=== PATIENT | female | born 1980 | race Caucasian/White ===

== ENCOUNTER → 2016-11-18 07:57 | Outpatient (CLI) | payer MEDICAID ==
[~2016-11-18 07:57] MED LIST: PRENATAL COMPLE1 TAB PO; ZANTAC150 MG
--- NOTE | 2016-11-18 09:39 | NUR ---
Nutrition education for TELLO: Pt eating breakfast this am in the dining room. Pt eating biscuit, gravy, hash browns, sausage, eggs, chocolate milk. Pt reports she eats large amounts of food at every meal. Pt ate a whole pizza and her glucose was over 200 mg/dl after. Pt is drinking some juice and soda, but says she drinks mostly water. Pt is eating a lot of fast food. Pt does like nonstarchy vegetables and tries to eat them every day. Reviewed CHO containing foods and the affect too many CHO have on glucose. Stressed the importance of eating meals at consistent times along with portion control to keep glucose under control. Reviewed portion sizes of common CHO foods. Reviewed sample menus with emphasis on CHO. Pt is not very happy with having to limit CHO intake and states that she is going to be hungry all the time. RDN does not feel pt is going to be compliant with information provided due to her not wanting to stop eating large amounts of food at meals. Reviewed correct glucose numbers for before and 1 hour after meals; compared correct numbers with pts glucose log. Pt is out of range almost every time after meals. Reviewed again to limit the amount of CHO to no more than 60 gms per meal and 30 gms per snack. RDN provided pt with printed diet information and RDN name and phone number. RDN will be available if needed. Thank you for the consult.
[2017-01-15 05:10] VITALS: BMI 33.3
== END | disposition home or self-care (01) ==
LOC: D.FANS 07:57
DX: O24.419 Gestational diabetes mellitus in pregnancy, unspecified control (principal)

== ENCOUNTER → 2016-12-09 10:35 | Outpatient (CLI) | payer MEDICAID ==
[2017-01-15 05:10] VITALS: BMI 33.3
== END | disposition home or self-care (01) ==
LOC: D.LDO 10:35
DX: O24.419 Gestational diabetes mellitus in pregnancy, unspecified control (principal)

== ENCOUNTER → 2016-12-12 09:29 | Outpatient (CLI) | payer MEDICAID ==
[2017-01-15 05:10] VITALS: BMI 33.3
== END | disposition home or self-care (01) ==
LOC: D.LDO 09:29
DX: O24.913 Unspecified diabetes mellitus in pregnancy, third trimester (principal); Z3A.34 34 weeks gestation of pregnancy

== ENCOUNTER → 2016-12-15 10:00 | Outpatient (CLI) | payer MEDICAID ==
[2017-01-15 05:10] VITALS: BMI 33.3
== END | disposition home or self-care (01) ==
LOC: D.LDO 10:00
DX: O24.913 Unspecified diabetes mellitus in pregnancy, third trimester (principal); Z3A.34 34 weeks gestation of pregnancy

== ENCOUNTER → 2016-12-17 11:05 | Outpatient (CLI) | payer MEDICAID ==
[2017-01-15 05:10] VITALS: BMI 33.3
== END | disposition home or self-care (01) ==
LOC: D.LDO 11:05
DX: O24.419 Gestational diabetes mellitus in pregnancy, unspecified control (principal); Z3A.35 35 weeks gestation of pregnancy

== ENCOUNTER → 2016-12-21 10:00 | Outpatient (CLI) | payer MEDICAID ==
[2017-01-15 05:10] VITALS: BMI 33.3
== END | disposition home or self-care (01) ==
LOC: D.LDO 10:00
DX: O24.419 Gestational diabetes mellitus in pregnancy, unspecified control (principal); Z3A.35 35 weeks gestation of pregnancy

== ENCOUNTER → 2016-12-24 10:49 | Outpatient (CLI) | payer MEDICAID ==
[2017-01-15 05:10] VITALS: BMI 33.3
== END | disposition home or self-care (01) ==
LOC: D.LDO 10:49
DX: O24.419 Gestational diabetes mellitus in pregnancy, unspecified control (principal); Z3A.36 36 weeks gestation of pregnancy

== ENCOUNTER → 2016-12-29 10:00 | Outpatient (CLI) | payer MEDICAID ==
[2017-01-15 05:10] VITALS: BMI 33.3
== END | disposition home or self-care (01) ==
LOC: D.LDO 10:00
DX: O24.419 Gestational diabetes mellitus in pregnancy, unspecified control (principal); Z3A.36 36 weeks gestation of pregnancy

== ENCOUNTER → 2017-01-01 08:55 | Outpatient (CLI) | payer MEDICAID ==
[2017-01-15 05:10] VITALS: BMI 33.3
== END | disposition home or self-care (01) ==
LOC: D.LDO 08:55
DX: O24.419 Gestational diabetes mellitus in pregnancy, unspecified control (principal); Z3A.37 37 weeks gestation of pregnancy

== ENCOUNTER → 2017-01-05 10:50 | Outpatient (CLI) | payer MEDICAID ==
[2017-01-15 05:10] VITALS: BMI 33.3
== END | disposition home or self-care (01) ==
LOC: D.LDO 10:50
DX: O24.419 Gestational diabetes mellitus in pregnancy, unspecified control (principal); Z3A.37 37 weeks gestation of pregnancy

== ENCOUNTER → 2017-01-06 17:59 | Outpatient (CLI) | payer MEDICAID | END | disposition home or self-care (01) | LOC: D.LDO 17:59 | DX: Z34.83 Encounter for supervision of other normal pregnancy, third trimester (principal); M54.9 Dorsalgia, unspecified; Z3A.37 37 weeks gestation of pregnancy ==

== ENCOUNTER → 2017-01-08 10:40 | Outpatient (CLI) | payer MEDICAID ==
[2017-01-15 05:10] VITALS: BMI 33.3
== END | disposition home or self-care (01) ==
LOC: D.LDO 10:40
DX: O24.419 Gestational diabetes mellitus in pregnancy, unspecified control (principal); Z3A.38 38 weeks gestation of pregnancy

== ENCOUNTER → 2017-01-12 09:40 | Outpatient (CLI) | payer MEDICAID | END | disposition home or self-care (01) | LOC: D.LDO 09:40 | DX: O24.419 Gestational diabetes mellitus in pregnancy, unspecified control (principal); Z3A.38 38 weeks gestation of pregnancy ==

== ENCOUNTER 2017-01-15 04:42 | Inpatient (IN) | payer MEDICAID ==
[~2017-01-15] VITALS: Ht 157.5 cm; Wt 82.7 kg
[2017-01-15 05:10] VITALS: BP 125/66; Ht 157.5 cm; Wt 82.7 kg
[2017-01-15 06:23] LABS: HEMATOCRIT 35.7 % (36.0-48.0); HEMOGLOBIN 11.6 g/dL (12-16); MCH 29.1 pg (26.0-34.0); MCHC 32.5 g/dL (31.0-37.0); MCV 89.5 fL (80.0-100.0); MEAN PLATELET VOLUME 10.6 fL (7.4-10.4); RBC 3.99 10x6/uL (4.00-5.40); RDW 14.9 % (11.5-14.5); WBC 14.8 10x3/uL (4.8-10.8)
[2017-01-15 07:00] LABS: APPEARANCE CLOUDY (CLEAR); BILIRUBIN NEGATIVE (NEGATIVE); COLOR YELLOW (YELLOW); GLUCOSE NEGATIVE (NEGATIVE); KETONE NEGATIVE (NEGATIVE); LEUKOCYTE ESTERASE 1+ (NEGATIVE); NITRITE NEGATIVE (NEGATIVE); PROTEIN 1+ mg/dL (NEGATIVE); UROBILINOGEN NORMAL (NORMAL)
[2017-01-15 07:02] LABS: BACTERIA MANY /hpf (NONE SEEN); MUCUS <1+ /lpf (NONE SEEN); RED CELLS - URINE OCC /hpf (0-5)
--- NOTE | 2017-01-15 16:00 | NUR ---
PATIENT UP TO SHOWER. INSTRUCTED ON USE OF EPI FOAM, TUCKS, AND DERMAPLAST. VERBALIZES UNDERSTANDING.
[2017-01-15 16:15] VITALS: BP 129/73
--- NOTE | 2017-01-15 18:06 | NUR ---
entered room. pt ate 90% of diet. states is having some cramping and requesting pain medication.
[2017-01-15 19:20] VITALS: BP 122/68
--- NOTE | 2017-01-15 19:20 | NUR ---
RCVD PT FROM AM SHIFT. PT SITTING UP IN BED WITH UP IN ARMS. PT RATES CURRENTLY PAIN 3/10 IN ABD AND DESCRIBED THIS CRAMPING. FOB REMAINS AT BEDSIDE. ASSESSMENT COMPLETE AT THIS TIME. VSS. HR-RRR, PPP. BREATH SOUNDS CLEAR AND UNLABORED X2. BOWEL SOUNDS ACTIVE X4. FUNDUS FIRM, U/2, ML. SMALL LOCHIA RUBRA NOTED ON PERIPAD. NO CLOTS. PIV TO RT HAND REMAINS INTACT. NO ERYTHEMA OR EDEMA NOTED @ SITE. PT DENIES NEEDS CURRENTLY. TEACHING REITERATED FOR PERINEAL CARE, PAIN MEDICATION SCHEDULED PRN AND NEED FOR AMBULATION. PT VERBALIZED UNDERSTANDING TO ALL. BED LOW. WHEELS LOCKED, CL IN REACH, SIDE RAILS UP X2.
--- NOTE | 2017-01-15 20:45 | NUR ---
MOM GIVEN PER ORDERS. SEE EMAR. PT C/O INTERMITTENT CRAMPING. PLANS TO BRING DEMEROL @ 2200 DISCUSSED WITH PT. PT VERBALIZES UNDERSTANDING AND IS AGREEABLE. WILL CONT. TO MONITOR.
--- NOTE | 2017-01-15 22:03 | NUR ---
DEMEROL 50MG X1 TAB GIVEN FOR PAIN RATED 7/10 WITH CRAMPING. FRESH ICE WATER IN [facility] CUP PROVIDED AT THIS TIME. PT ALSO REQUESTS & RECEIVES CAYDEN CRACKERS AND PEANUT BUTTER. INFANT UP IN ARMS FOR BONDING, FOB RESTING ON BEDSIDE COUCH. PT DENIES FURTHER NEEDS AT THIS TIME. WILL CONT. TO MONITOR.
--- NOTE | 2017-01-15 22:38 | NUR ---
PAIN REASSESSMENT COMPLETE AT THIS TIME. PT RATES PAIN 6/10 WITH CRAMPING. PT CHANGING INFANT'S DIAPER AT THIS TIME. DENIES NEED FOR PAIN MEDS OR ANY FURTHER NEEDS AT THIS TIME.
--- NOTE | 2017-01-16 00:50 | NUR ---
PAIN REASSESSMENT COMPLETE. PT RATES PAIN 4/10 AT THIS TIME. PT DENIES FURTHER NEEDS. WILL CONT. POC.
--- NOTE | 2017-01-16 01:55 | NUR ---
NBN REQUESTS INFANT FOR ASSESSMENT. THIS RN TO BEDSIDE. PT AND S.O. NOTED TO BE ASLEEP AND SNORING LOUDLY AT THIS TIME. INFANT IN OPEN CRIB AT BEDSIDE. PT REQUIRED DEEP PHYSICAL STIMULI IN ORDER TO AWAKEN. PT INFORMED THAT INFANT WILL BE TAKEN TO NBN. PT VERBALIZED UNDERSTANDING AND WENT BACK TO SLEEP. WILL CONT. POC.
--- NOTE | 2017-01-16 03:52 | NUR ---
ROUNDS MADE. PT RESTING ON BACK, HOB 20 DEGREES. SNORING LOUDLY. EYES CLOSED, RESP EVEN AND UNLABORED. PT LEFT UNDISTURBED AT THIS TIME.
[2017-01-16 05:13] LABS: RAPID PLASMA REAGIN Non Reactive (Non Reactive)
--- NOTE | 2017-01-16 05:41 | NUR ---
ROUNDS MADE. PT LYING ON BACK. SNORING LOUDLY. PT LEFT UNDISTURBED. WILL CONT. POC.
--- NOTE | 2017-01-16 06:41 | NUR ---
INFANT TRANSPORTED TO ROOM PER PT REQUEST, VIA OPEN CRIB AT THIS TIME. BANDS VERIFIED PER PROTOCOL AND INFANT PLACED IN MOTHER'S ARMS. PT DENIES PAIN OR NEEDS AT THIS TIME. FOB REMAINS AT BEDSIDE.
--- NOTE | 2017-01-16 07:31 | NUR ---
AMBULATING IN ROOM WITH INFANT IN ARMS. DENIES NEEDING ANYTHING AT THIS TIME. BREAKFAST TRAY IN ROOM. WILL COMPLETE SHIFT ASSESSMENT WHEN PATIENT FINISHED COMFORTING INFANT. TO CALL IF ANYTHING IS NEEDED.
[2017-01-16 07:40] LABS: HEMOGLOBIN 11.4 g/dL (12-16); MCH 29.1 pg (26.0-34.0); MCHC 32.6 g/dL (31.0-37.0); MCV 89.3 fL (80.0-100.0); MEAN PLATELET VOLUME 10.6 fL (7.4-10.4); RBC 3.92 10x6/uL (4.00-5.40); RDW 14.7 % (11.5-14.5); WBC 17.6 10x3/uL (4.8-10.8)
--- NOTE | 2017-01-16 08:44 | OP ---
PATIENT NAME: YASHIRA APONTE MEDICAL RECORD: [id number] :82 LOCATION:[id number] ADMISSION DATE:01/15/17 SURGEON: JONATHAN BARONE MD DATE OF OPERATION: 01/15/2017 Delivery Note Spontaneous vaginal delivery of male weighing 6 pounds 11-1/2 ounces, 9 and 9 Apgars, over a second-degree midline episiotomy, epidural anesthesia. Cord pH drawn and pending. Second-degree episiotomy repaired using 2-0 chromic suture. COMPLICATIONS OF DELIVERY: None. ESTIMATED BLOOD LOSS: 400 cc. TRANSINT:[id number] Voice Confirmation ID: [id number] DOCUMENT ID: [id number] JONATHAN BARONE MD at 0844 CC: [id number] DICTATION DATE: 01/15/17 1437 SPECIAL TESTER: 01/15/17 2223 ADM IN [place] [id number] [place] [address]
--- NOTE | 2017-01-16 09:06 | NUR ---
THIS RN TO ROOM FOR SHIFT ASSESSMENT. PT CURRENTLY UP TO BR. ADDITIONAL PADS, PANTIES AND TOILET PAPER PROVIDED. PT'S PAIN ASSESSED. PT CURRENTLY REPORTING ABD CRAMPING AND PERINEAL PAIN THAT SHE RATES 03/13. PT REQUEST DEMEROL AT THIS TIME. DEMEROL 50MG PO PER MD ORDERS GIVEN. SEE EMAR. DENIES FURTHER NEEDS AT THIS TIME.
--- NOTE | 2017-01-16 09:40 | NUR ---
DR EIRCKSON TO ROOM TO SPEAK WITH PT AT THIS TIME.
[2017-01-16 09:45] VITALS: BP 118/71
--- NOTE | 2017-01-16 09:45 | NUR ---
THIS RN TO ROOM FOR SHIFT ASSESSMENT. PT CURRENTLY LYING IN BED AA&O X 4. PAIN REASSESSED. PT REPORTS PERINEAL PAIN AND CRAMPING PAIN REMAINS THE SAME. MOTRIN OFFERED. PT ACCEPTS. SEE EMAR. BREATFHSOUNDS CL/=, ABD SOFT, NON DISTENDED. FUNDUS FIRM,U/2, SMALL RUBRA LOCHIA REPORTED. PT REPORTS HAVING A BM THIS AM AND DENIES DIFFICULTY VOIDING. EPISIOTOMY WELL APROXIMATED. GENERALIZED EDEMA NOTED TO UPPER AND LOWER EXTREMITIES BILATERALLY. SALINE LOCKED D/C. SITE WNL. BANDAID PLACED OVER SITE.CONTINUED POC DISCUSSED W/PT. TDAP PT INFORMATION SHEET PROVIDED AND PT INFORMED THAT TDAP IS RECOMMENED. FRESH ICE WATER SERVED. PT DENIES FURTHER NEEDS AT THIS TIME. BED LOW,SIDE RAILS UP X 2, CALL LIGHT AT BEDSIDE.
--- NOTE | 2017-01-16 11:00 | NUR ---
PT RINGS CALL LIGHT. THIS RN TO ROOM. PT REPORTS IT'S TIME FOR INFANT TO BE FEED, QUESTIONS IF HE NEEDS TO GO TO NURSERY FOR BLOOD SUGAR CHECK AND PT NEEDS A BOTTLE TO FEED. THIS RN TO NURSERY. NBN NURSE REPORTS THAT NO, BLOOD SUGAR CHECKS HAVE BEEN STOPPED. BOTTLE TAKEN TO PT'S ROOM FOR PT TO FEED INFANT. PT'S PAIN REASSESSED. PT REPORTS PAIN IS STILL 6/10. NO REQUEST MADE FOR ADDITIONAL PAIN INTERVENTIONS AT THIS TIME. TEACHING PROVIDED.
--- NOTE | 2017-01-16 11:40 | NUR ---
THIS RN TO PT ROOM TO ASSESS FEEDING. PT HAS FEED 40MLS. INFANT CURRENTLY CRYING. MOTHER STATES, I THING HE WANTS HIS DIAPER CHANGED BEFORE HE FINISHES EATING. PT ASSISTED W/CHANGING DIAPER. DIAPER WET, SCANT STOOL NOTED. CLEAN DIAPER PLACED. SWADDLED X 2. INFANT NOW QUIET. PLACED BACK IN PT'S ARMS FOR HER TO CONTINUE FEEDING. SLOW TO CONTINUE EATING. THIS RN REMAINS AT BESIDE TO MONITOR FEEDING. TAKES ANOTHER 2.5MLS. PT ENCOURAGED TO CONTINUE TO FEED TO ATTEMPT TO GET TO TO 45ML PER DR ALVARADO REQUEST.
--- NOTE | 2017-01-16 12:40 | NUR ---
THIS RN TO ROOM TO CONFIRM THAT PT IS WANTING TO RECEIVE TDAP BEFORE DISCHARGE. PT CONFIRMS THAT YES, SHE WISHES TO RECEIVE TDAP. PT CURRENTLY RESTING IN BED W/INFANT UP IN ARMS. DENIES NEEDS. DECLINES OFFER TO BRING HER ANY PAIN MEDICATION AT THIS TIME.
--- NOTE | 2017-01-16 14:00 | NUR ---
THIS RN TO BEDSIDE TO INFORM PT THAT THIS RN IS PREPARING HER DISCHARGE PAPERS AT THIS TIME. PT VERBALZIES UNDERSTANDING. NO NEEDS VOICED AT THIS TIME.
--- NOTE | 2017-01-16 14:30 | NUR ---
THIS RN TO BEDSIDE TO PROVIDE DISCHARGE TEACHING AND TO PROVIDE DISCHARGE HANDOUT. DI INSTRUCTIONS FOR VAG DELIVERY, HOW TO CARE FOR EPISIOTOMY, HOW TO TAKE RECOMMENDED IBUPROFEN FOR PAIN, HOW TO FEED YOUR INFANT, DTAP INFO SHEET PFW CARD W/INSTRUCTION FOR PT TO CALL OFFICE ON WEDNESDAY TO MAKE A 4 WEEK FOLLOW UP APPT. PT VERBALIZES UNDERSTANDING AND IS AGREEABLE.
--- NOTE | 2017-01-16 14:57 | NUR ---
TDAP GIVEN IN LEFT DELTOID PER PT REQUEST. SEE EMAR. CONTINUED POC DISCUSSED W/PT. PT VERBALIZES UNDERSTANDING. PT'S NEEDS AND PAIN ASSESSED. PT W/C/O ABD CRAMPING THAT SHE REPORTS TO BE 7/10 AND PERINEAL PAIN 6/10. PT REQUEST FOR MOTRIN AND DEMEROL AT THIS TIME. MOTRIN 600MG AND DEMEROL 50MG ONE TAB GIVEN PER MD ORDERS. SEE EMAR. FRESH ICE WATER SERVED. CLEAN TOWELS/RAGS PROVIDED PER PT REQUEST TO SHOWER. NO FURTHER NEEDS. SIG OTHER ON SOFA W/INFANT UP IN ARFMS.
--- NOTE | 2017-01-16 16:30 | NUR ---
THIS RN TO ROOM TO TRANSPORT VIA CRIB TO ROOM. PT CURRENTLY UP AMBUALTING IN ROOM.INFANT AND MOTHER ID BANDS CONFIRMED PER PROTOCOL. PAIN REASSESSED. PT REPORTS PAIN IS BETTER. RATES PAIN 5/10. ADDITIONAL FRESH ICE SERVED. NO FURTHER NEEDS VOICED AT THIS TIME
--- NOTE | 2017-01-16 17:55 | NUR ---
ROUNDS MADE. PT SITTING ON SOFA WITH SIG OTHER WATCHING TV. DENIES NEEDS. REPORTS CONTINUED PERINEAL PAIN AND ABD CRAMPING. NO PAIN INTERVENTIONS REQUESTED AT THIS TIME.
--- NOTE | 2017-01-16 18:40 | NUR ---
PT DISCHARGE PAPER SIGNED AND COPY GIVEN TO PT. PT TRANSPORTED VIA W/C W/INFANT IN CARSEAT TO AWAITING CAR TO BE DRIVEN HOME BY SIG OTHER.
== END 2017-01-16 18:40 | disposition home or self-care (01) | DRG 775 ==
LOC: D.LD
PROVIDERS: ADMIT Obstetrics & Gynecology
PROC: 10E0XZZ Delivery of Products of Conception, External Approach (ICD-10-PCS; principal; 2017-01-15)
PROC: 0W8NXZZ Division of Female Perineum, External Approach (ICD-10-PCS; 2017-01-15)
DX: O24.429 Gestational diabetes mellitus in childbirth, unspecified control (principal); Z3A.39 39 weeks gestation of pregnancy; Z37.0 Single live birth; Z87.891 Personal history of nicotine dependence